=== PATIENT | female | born 1950 ===

== ENCOUNTER 2020-12-28 08:38 | Outpatient (CLI) | payer MEDICARE ==
[2020-12-28 15:23] LABS: BASOPHILS % (AUTO) 0.8 %; EOSINOPHILS # (AUTO) 0.2 10^3/uL (0.0-0.7); EOSINOPHILS % (AUTO) 2.9 %; HGB - HEMOGLOBIN 13.5 g/dL (12.0-16.0); LYMPHOCYTES # (AUTO) 2.2 10^3/uL (1.5-3.5); LYMPHOCYTES % (AUTO) 42.7 %; MEAN CORPUSCULAR HEMOGLOBIN 30.4 pg (27.0-31.0); MEAN CORPUSCULAR HGB CONC 31.8 g/dL (32.0-36.0); MEAN CORPUSCULAR VOLUME 95.7 fL (81.0-99.0); MEAN PLATELET VOLUME 11.1 fL (7.9-10.8); MONOCYTES # (AUTO) 0.4 10^3/uL (0.0-1.0); MONOCYTES % (AUTO) 8.5 %; NEUTROPHILS # (AUTO) 2.3 10^3/uL (1.5-6.6); NEUTROPHILS % (AUTO) 44.9 %; PLT - PLATELET COUNT 251 10^3/uL (130-450); RED BLOOD COUNT 4.44 10^6/uL (4.20-5.40); RED CELL DISTRIBUTION WIDTH 12.2 % (12.0-15.0); WHITE BLOOD COUNT 5.2 x10^3/uL (4.8-10.8)
[2020-12-28 16:43] LABS: ALBUMIN 4.3 g/dL (3.2-5.5); ALBUMIN/GLOBULIN RATIO 1.9 (1.0-2.2); ALKALINE PHOSPHATASE 75 IU/L (42-121); ALT ALANINE AMINOTRANSFERASE 14 IU/L (10-60); AST ASPARTATE AMINOTRANSFERASE 17 IU/L (10-42); BILIRUBIN,TOTAL 0.6 mg/dL (0.2-1.0); BUN - BLOOD UREA NITROGEN 17 mg/dL (6-20); CALCIUM 9.3 mg/dL (8.5-10.3); CARBON DIOXIDE - CO2 25 mmol/L (21-32); CHLORIDE 104 mmol/L (101-111); CHOL/HDL RATIO 3.5 (<4.4); CHOLESTEROL 276 mg/dL; CREATININE 0.8 mg/dL (0.4-1.0); GLUCOSE 109 mg/dL (70-100); HDL CHOLESTEROL 80 mg/dL; LDL CHOLESTEROL,CALCULATED 174 mg/dL; LDL/HDL RATIO 2.2 (<4.4); TOTAL PROTEIN 6.6 g/dL (6.7-8.2); VLDL CHOLESTEROL 22 mg/dL
[2020-12-29 12:57] LABS: HEPATITIS C ANTIBODY NON-REACTIVE (NON-REACTIVE)
== END 2020-12-28 08:39 | disposition home or self-care (01) ==
LOC: LAB.S 08:38
PROVIDERS: ATTEND Registered Nurse
DX: Z01.84 Encounter for antibody response examination (principal); R73.01 Impaired fasting glucose; E78.5 Hyperlipidemia, unspecified; Z11.59 Encounter for screening for other viral diseases
CPT/HCPCS: 36415; 80053; 80061; 82274; 83721; 84443; 85025; 86803

== ENCOUNTER 2021-02-14 13:57 | Outpatient (CLI) | payer MEDICARE ==
--- NOTE | 2021-02-15 11:40 | Mammography Report ---
BILATERAL DIGITAL SCREENING MAMMOGRAM 3D/2D WITH EXAGGERATED CC: 02/14/2021 CLINICAL: Routine screening. Routine screening. Comparison is made to exam dated: 04/21/2014 mammogram - [facility]. The tissue of both breasts is heterogeneously dense. This may lower the sensitivity of mammography. No significant masses, calcifications, or other findings are seen in either breast. There has been no significant interval change. IMPRESSION: NEGATIVE There is no mammographic evidence of malignancy. A 1 year screening mammogram is recommended. This exam was interpreted at Station ID: [id number]. NOTE: For mammograms, a report in lay terms will be sent to the patient. Approximately 15% of breast malignancies will not be visualized mammographically. In the management of a palpable breast mass, a negative mammogram must not discourage biopsy of a clinically suspicious lesion. Electronically Signed By: Win Drake M.D. [email or web address]/[email or web address]:02/14/2021 16:35:02 ACR BI-RADS Category 1: Negative 3341F PARENCHYMAL PATTERN: (D) - The breast(s) demonstrate(s) heterogeneously dense fibroglandular pedro moncada. BI-RADS CATEGORY: (1) - 1 RECOMMENDATION: (ANNUAL) - Recommend routine annual screening mammography. [id number] 1 year screening LATERALITY: (B)
== END 2021-02-14 13:58 | disposition home or self-care (01) ==
LOC: DI.S 13:57
DX: Z12.31 Encounter for screening mammogram for malignant neoplasm of breast (principal)

== ENCOUNTER 2021-07-21 13:52 | Outpatient (CLI) | payer MEDICARE | END 2021-07-21 13:53 | disposition home or self-care (01) | LOC: COV 13:52 | PROVIDERS: ATTEND Family Medicine | DX: M79.10 Myalgia, unspecified site (principal); R51.9 Headache, unspecified; Z20.822 Contact with and (suspected) exposure to COVID-19 ==

== ENCOUNTER 2022-10-10 08:00 | Outpatient (CLI) | payer MEDICARE ==
--- NOTE | 2022-10-11 13:12 | XRAY Report ---
PROCEDURE: Cervical Spine 2 View INDICATIONS: CERVICAL RADICULOPATHY TECHNIQUE: 3 view(s) of the cervical spine were acquired. COMPARISON: None. FINDINGS: Bones: No fractures or dislocations to the T1 level. The lateral masses of C1 appear intact on the odontoid view. No suspicious bony lesions. Disc space narrowing at C5-6 and C6-7 with endplate dege nerative changes and osteophytes consistent with disc disease. There is leftward curvature of the cer vicothoracic spine. Soft tissues: No prevertebral soft tissue swelling. IMPRESSION: 1. No acute abnormality. 2. Degenerative disc disease of C5-6 and C6-7. Reviewed by: Mejia Licea on 10/11/2022 1:10 PM PST Approved by: Mejia Licea on 10/11/2022 1:10 PM PST Station ID: [id number]
== END 2022-10-10 08:01 | disposition home or self-care (01) ==
LOC: DI.S 08:00
PROVIDERS: ATTEND Registered Nurse
DX: M50.322 Other cervical disc degeneration at C5-C6 level (principal)

== ENCOUNTER 2023-06-26 10:52 | Outpatient (CLI) | payer MEDICARE ==
--- NOTE | 2023-06-27 10:35 | Mammography Report ---
BILATERAL DIGITAL SCREENING MAMMOGRAM 3D/2D: 06/26/2023 CLINICAL: Routine screening. Family history of breast cancer. Comparison is made to exams dated: 02/14/2021 mammogram and 04/21/2014 mammogram - [facility]. Both breasts are heterogeneously dense, which may obscure small masses (category c / 51-75% glandular tissue). No significant masses, calcifications, or other findings are seen in either breast. There has been no significant interval change. IMPRESSION: NEGATIVE There is no mammographic evidence of malignancy. A 1 year screening mammogram is recommended. Based on the Tyrer Cuzick model (a risk assessment model) the patients lifetime risk is 8.3% and her 10 year risk is 5.3%. According to the ACR, ACS, and NCCN guidelines, an annual breast MRI exam acacia g with mammogram is recommended if the patients lifetime risk is 20% or greater. This exam was interpreted at Station ID: [id number]. NOTE: For mammograms, a report in lay terms will be sent to the patient. Approximately 15% of breast malignancies will not be visualized mammographically. In the management of a palpable breast mass, a negative mammogram must not discourage biopsy of a clinically suspicious lesion. Electronically Signed By: Benja [email or web address]/[email or web address]:06/26/2023 21:01:06 letter sent: No_Letter ACR BI-RADS Category 1: Negative 3341F PARENCHYMAL PATTERN: (D) - The breast(s) demonstrate(s) heterogeneously dense fibroglandular pedro moncada. BI-RADS CATEGORY: (1) - 1 Mammogram [id number] 1 year screening LATERALITY: (B)
== END 2023-06-26 10:53 | disposition home or self-care (01) ==
LOC: DI.S 10:52
PROVIDERS: ATTEND Internal Medicine
DX: Z12.31 Encounter for screening mammogram for malignant neoplasm of breast (principal); Z80.3 Family history of malignant neoplasm of breast

== ENCOUNTER 2023-06-26 11:36 | Outpatient (CLI) | payer MEDICARE ==
[2023-06-26 15:06] LABS: BASOPHILS # (AUTO) 0.1 10^3/uL (0.0-0.1); BASOPHILS % (AUTO) 1.2 %; EOSINOPHILS # (AUTO) 0.1 10^3/uL (0.0-0.7); EOSINOPHILS % (AUTO) 2.7 %; HCT - HEMATOCRIT 41.4 % (37.0-47.0); HGB - HEMOGLOBIN 13.3 g/dL (12.0-16.0); LYMPHOCYTES # (AUTO) 1.9 10^3/uL (1.5-3.5); LYMPHOCYTES % (AUTO) 39.5 %; MEAN CORPUSCULAR HEMOGLOBIN 30.7 pg (27.0-31.0); MEAN CORPUSCULAR HGB CONC 32.1 g/dL (32.0-36.0); MEAN CORPUSCULAR VOLUME 95.6 fL (81.0-99.0); MEAN PLATELET VOLUME 10.9 fL (7.9-10.8); MONOCYTES # (AUTO) 0.4 10^3/uL (0.0-1.0); MONOCYTES % (AUTO) 8.4 %; NEUTROPHILS # (AUTO) 2.4 10^3/uL (1.5-6.6); PLT - PLATELET COUNT 246 10^3/uL (130-450); RED BLOOD COUNT 4.33 10^6/uL (4.20-5.40); RED CELL DISTRIBUTION WIDTH 12.2 % (12.0-15.0); WHITE BLOOD COUNT 4.9 x10^3/uL (4.8-10.8)
[2023-06-26 15:53] LABS: THYROID STIMULATING HORMONE 2.38 uIU/mL (0.34-5.60)
[2023-06-26 16:04] LABS: CHOL/HDL RATIO 3.1 (<4.4); CHOLESTEROL 255 mg/dL; CRP - C-REACTIVE PROTEIN < 0.5 mg/dL (<0.5); HDL CHOLESTEROL 83 mg/dL; LDL CHOLESTEROL,CALCULATED 148 mg/dL; LDL/HDL RATIO 1.8 (<4.4); TRIGLYCERIDES 119 mg/dL (48-352); VLDL CHOLESTEROL 24 mg/dL
[2023-06-26 20:16] LABS: ESTIMATED AVERAGE GLUCOSE 123 mg/dL (70-100); HEMOGLOBIN A1c% 5.9 % (4.27-6.07)
[2023-06-28 17:08] LABS: ANTINUCLEAR ANTIBODIES IFA Negative (.)
== END 2023-06-26 11:37 | disposition home or self-care (01) ==
LOC: LAB.S 11:36
PROVIDERS: ATTEND Internal Medicine
DX: M25.50 Pain in unspecified joint (principal); R53.83 Other fatigue; Z72.820 Sleep deprivation; M54.12 Radiculopathy, cervical region; G62.9 Polyneuropathy, unspecified; Z87.898 Personal history of other specified conditions
CPT/HCPCS: 36415; 80061; 82607; 82746; 83036; 83721; 84443; 85025; 85651; 86038; 86140

== ENCOUNTER 2024-01-12 08:00 | Outpatient (CLI) | payer MEDICARE ==
--- NOTE | 2024-01-13 13:24 | XRAY Report ---
PROCEDURE: Cervical Spine 2-3V INDICATIONS: CERVICAL RADICULOPATHY TECHNIQUE: 3 view(s) of the cervical spine were acquired. COMPARISON: Cervical spine radiographs 10/10/2022 FINDINGS: Bones: No fractures or dislocations to the C7 level. The lateral masses of C1 appear intact on the odontoid view. No suspicious bony lesions. There is straightening of the normal cervical lordosis. There is trace anterolisthesis of C3 on C4 and C4 on C5. Disc space narrowing at C5-C6 and C6-C7 with endplate degenerative changes and osteophytosis, progressed since prior radiograph 10/10/2022. Soft tissues: No prevertebral soft tissue swelling. IMPRESSION: No acute fracture or traumatic subluxation. Trace anterolisthesis of C3 on C4 and C4 on C5. Degenerat albert disc disease at C5-C6 and C6-C7, progressed since 10/10/2022. Reviewed by: Tanya Simmons MD on 01/13/2024 1:22 PM PST Approved by: Tanya Simmons MD on 01/13/2024 1:22 PM PST Station ID: [id number]
--- NOTE | 2024-01-13 13:35 | XRAY Report ---
PROCEDURE: Thoracic Spine 2V INDICATIONS: CERVICAL RADICULOPATHY TECHNIQUE: 2 views of the thoracic spine were acquired. COMPARISON: None. FINDINGS: Bones: Incomplete visualization of the upper thoracic spine from T1 to T2 on lateral view. No fractu res or dislocations. No suspicious bony lesions. Ribs appear intact where visualized. Thoracic dextr oconvex curvature. Minimal disc height loss and endplate degenerative changes. Soft tissues: No paravertebral stripe thickening. IMPRESSION: No acute osseous abnormality from T3 to T12. Reviewed by: Tanya Simmons MD on 01/13/2024 1:33 PM PST Approved by: Tanya Simmons MD on 01/13/2024 1:33 PM PST Station ID: [id number]
== END 2024-01-12 23:59 | disposition home or self-care (01) ==
LOC: DI.S 08:00
PROVIDERS: ATTEND Registered Nurse
DX: M50.322 Other cervical disc degeneration at C5-C6 level (principal); M43.12 Spondylolisthesis, cervical region; M47.814 Spondylosis without myelopathy or radiculopathy, thoracic region

== ENCOUNTER 2024-01-12 12:21 | Outpatient (CLI) | payer MEDICARE ==
--- NOTE | 2024-01-13 13:17 | XRAY Report ---
PROCEDURE: Lumbar Spine 2-3V INDICATIONS: HIP PAIN, RIGHT TECHNIQUE: 2 views of the lumbar spine were acquired. COMPARISON: None. FINDINGS: Bones: 5 [id number] vertebrae are present. Trace anterolisthesis of L3 on L4 and L4 on L5. Mil d multilevel intervertebral disc height loss, endplate stenosis and osteophytosis. Bilateral multilev el facet arthropathy. No vertebral body compression fractures. No suspicious bony lesions. Soft tissues: Overlying bowel gas pattern is normal. No suspicious soft tissue calcifications. IMPRESSION: No acute osseous abnormality. Mild multilevel disc degeneration and bilateral facet arthropathy. Reviewed by: Tanya Simmons MD on 01/13/2024 1:16 PM PST Approved by: Tanya Simmons MD on 01/13/2024 1:16 PM PST Station ID: [id number]
--- NOTE | 2024-01-13 13:19 | XRAY Report ---
PROCEDURE: Hip w/Pelvis 2-3V RT INDICATIONS: RIGHT HIP PAIN TECHNIQUE: 2 views of the hip were acquired. COMPARISON: None. FINDINGS: Bones: No fractures or dislocations. No suspicious bony lesions. Mild right hip joint degeneratio n. Soft tissues: No suspicious soft tissue calcifications or masses. IMPRESSION: No radiographic abnormality. Mild right hip joint degeneration. If there is high clinical concern for internal derangement, recommend further evaluation with cross-sectional imaging suspicious CT or MRI . Reviewed by: Tanya Simmons MD on 01/13/2024 1:18 PM PST Approved by: Tanya Simmons MD on 01/13/2024 1:18 PM PST Station ID: [id number]
== END 2024-01-12 12:22 | disposition home or self-care (01) ==
LOC: DI.S 12:21
PROVIDERS: ATTEND Internal Medicine
DX: M16.11 Unilateral primary osteoarthritis, right hip (principal); M47.816 Spondylosis without myelopathy or radiculopathy, lumbar region; M51.36 Other intervertebral disc degeneration, lumbar region

== ENCOUNTER 2024-03-05 12:41 | Outpatient (CLI) | payer MEDICARE ==
--- NOTE | 2024-03-05 15:41 | MRI Report ---
Lumbar Spine WO Clinical History: 73 years of age, Female, LUMBAR RADICULOPTHY. Comparison: No priors available Technique: Multiplanar multisequence lumbar spine MRI without contrast was performed. Findings: Prior surgery: None. Vertebral bodies: Vertebral body heights are maintained. Alignment: Grade 1 anterolisthesis of L3 on L4, and L4-L5. Bone marrow: Mixed fibrovascular fibrofatty endplate change at L5-S1. Intervertebral discs: Multilevel disc bulge and disc desiccation. The conus medullaris is normal in contour, signal intensity, and location. The tip of the conus is at T12-L1.. The following axial levels are detailed below: T12-L1: Mild bilateral facet arthropathy. No central canal stenosis. No right neuroforaminal stenosis . No left neuroforaminal stenosis. L1-L2: Mild bilateral facet arthropathy. No central canal stenosis. No right neuroforaminal stenosis. No left neuroforaminal stenosis. L2-L3: Mild bilateral facet arthropathy. No central canal stenosis. No right neuroforaminal stenosis. No left neuroforaminal stenosis. L3-L4: Posterior disc uncovering. Severe bilateral facet arthropathy. Mild central canal stenosis. No right neuroforaminal stenosis. No left neuroforaminal stenosis. L4-L5: Posterior disc uncovering. Mild right and moderate left facet arthropathy. No central canal st enosis. No right neuroforaminal stenosis. No left neuroforaminal stenosis. L5-S1: Mild disc bulge. No central canal stenosis. Mild right neuroforaminal stenosis. Mild left neur oforaminal stenosis. Visualized sacrum and pelvis: Visualized sacrum is unremarkable. No abdominal aortic aneurysm. IMPRESSION: 1.Multilevel degenerative changes in lumbar spine, most pronounced at L3-4, there is mild central can al stenosis. 2.Mild bilateral neuroforaminal stenosis at L5-S1. Reviewed by: Mary Lou Mueller MD on 03/05/2024 3:40 PM PDT Approved by: Mary Lou Mueller MD on 03/05/2024 3:40 PM PDT Station ID: [id number]
== END 2024-03-05 12:42 | disposition home or self-care (01) ==
LOC: DI 12:41
PROVIDERS: ATTEND Internal Medicine
DX: M47.816 Spondylosis without myelopathy or radiculopathy, lumbar region (principal); M51.36 Other intervertebral disc degeneration, lumbar region; M48.061 Spinal stenosis, lumbar region without neurogenic claudication; M51.37 Other intervertebral disc degeneration, lumbosacral region; M48.07 Spinal stenosis, lumbosacral region